=== PATIENT | female | born 1930 | race Caucasian/White ===

== ENCOUNTER 2018-07-12 09:14 | Inpatient (IN) | payer MEDICARE ==
--- NOTE | 2018-07-12 10:59 | RAD ---
ONE VIEW PELVIS: HISTORY: Fall. Pain. FINDINGS: Sacral alae are preserved. Sacroiliac joints are patent and symmetric. There is an acute fracture i nvolving the right superior pubic ramus. There is a presumed radiographically occult right inferior pubic ramus fracture. Contour of both femoral heads is maintained. Mild degenerative change of both hip joint spaces. IMPRESSION: Right rami fracture. POS: [facility]
--- NOTE | 2018-07-12 11:01 | RAD ---
RIGHT FEMUR 2 VIEWS: HISTORY: Fall. Pain. FINDINGS: No fracture, cortical irregularity, or periosteal reaction with regards to the right femur. Right superior pubic ramus fracture is noted. Inferior ramus fracture is not appreciated and is pres umed to be radiographically occult. IMPRESSION: Right superior pubic ramus fracture. POS: [facility]
--- NOTE | 2018-07-12 12:15 | RAD ---
PORTABLE CHEST: DATE: 07/12/2018. PROVIDED CLINICAL HISTORY: Cough. FINDINGS: Comparison 02/18/2017. A portion of the right hemithorax is not visualized on this image due to techni que. Cardiac silhouette remains enlarged. Left subclavian cardiac pacing device is again noted. Le ft basilar pleural-parenchymal opacities may reflect pleural fluid and adjacent atelectasis or pneumo marcy. Conspicuous appearance to the right hilum is nonspecific. No evidence for pneumothorax. IMPRESSION: 1. Left basilar pleural-parenchymal opacity may reflect pleural fluid and adjacent atelectasis or pn eumonia. 2. Mass-like appearance to the right hilum. Correlation with chest CT is recommended. CODE T
[2018-07-12 12:55] LABS: Bilirubin Small (Negative); Blood, Urine Negative (Negative); Clarity CLEAR (Clear); Glucose, Urine (Dipstick) Negative (Negative); Leukocyte Trace (Negative); Nitrite Negative (Negative); Protein, Urine (Dipstick) Negative (Neg-Trace); Specific Gravity, Urine 1.021 (1.002-1.036); Urobilinogen 0.2 mg/dL (0.2-1.0); pH, Urine 5.5 (5.0-9.0)
[2018-07-12 12:57] LABS: Bacteria/HPF None Seen HPF (None Seen); Hyaline Casts/LPF 0-3 HYALINE CAST LPF (0-3 Hyaline); Pathc Cast-AUWi Flag 0.14 (0-2.49); RBC/HPF 0-3 HPF (0-3); Squamous Epithelial None Seen HPF (0-3); WBC/HPF None Seen HPF (0-3)
[2018-07-12 13:04] LABS: #Lymphocytes 0.3 thou/uL (1.20-3.40); #Monocytes 0.5 thou/uL (0.11-0.59); #Neutrophils 6.9 thou/uL (1.40-6.50); %Basophils 0.1 % (0.0-1.0); %Eosinophils 0.2 % (0.0-10.0); %Monocytes 6.6 % (0.0-10.0); %Neutrophils 89.2 % (42.0-75.0); Hemoglobin 10.7 g/dL (12.0-16.0); Mean Corpuscular Hemoglobin 32.8 pg (27.0-31.0); Mean Corpuscular Volume 96.4 fL (78.0-98.0); Mean Platelet Volume 7.6 fL (7.4-10.4); Platelet Count 158 thou/uL (130-400); RBC Distribution Width 13.4 % (11.5-14.5); Red Blood Cell (RBC) Count 3.27 mill/uL (4.20-5.40); White Blood Cell (WBC) Count 7.7 thou/uL (4.8-10.8)
[2018-07-12 13:17] LABS: ALT (SGPT) 41 U/L (8-55); AST (SGOT) 15 U/L (5-34); Albumin 3.4 g/dL (3.4-4.8); Alkaline Phosphatase 94 U/L (40-150); Anion Gap 14 mmol/L (10-20); BUN (Urea Nitrogen) 31 mg/dL (9.8-20.1); Calc. Creatinine Clearance 0 mL/min (70-130); Calcium 9.3 mg/dL (7.8-10.44); Carbon Dioxide 27 mmol/L (23-31); Chloride 97 mmol/L (98-107); Estimated GFR-MDRD 66; Globulin 3.7 g/dL (2.4-3.5); Glucose 125 mg/dL (83-110); Potassium 3.7 mmol/L (3.5-5.1); Protein, Total 7.1 g/dL (6.0-8.3); Sodium 134 mmol/L (136-145)
[2018-07-12] MEDS ORDERED: Morphine 4 MG/ML VIAL ONE (14:05)
[2018-07-12] MEDS ORDERED: Morphine 2 MG/ML SYRINGE SLOW IVP PRN (15:56)
[2018-07-12] MEDS ORDERED: Morphine 4 MG/ML VIAL SLOW IVP PRN (15:58)
[2018-07-12] MEDS ORDERED: Ondansetron PF 4 MG/2 ML Vial IVP PRN ×2 (16:04→18:52)
[2018-07-12] MEDS ORDERED: Fentanyl 100 MCG/2 ML VIAL SLOW IVP PRN (18:51)
[2018-07-12] MEDS: Sodium Chloride 0.45% 1,000 ML IV SCH (19:00)
[2018-07-12] MEDS: Brinzolamide 1% Ophth Soln 10 ml Bottle L EYE SCH (19:49)
[2018-07-12] MEDS: Atorvastatin Calcium 40 MG TAB PO SCH (19:49)
[2018-07-12] MEDS: Ivabradine 5 MG TAB PO SCH (19:49)
--- NOTE | 2018-07-12 22:46 | HP ---
HISTORY OF PRESENT ILLNESS: The patient was brought to the emergency room because of a previous fall by her family. The family did note that she had been having a great deal of pain, unable to move or eat as she normally had. She states that she actually was walking around the house and getting her clothes on the day prior to coming to the emergency room. She sat back thinking she was going to sit on the bed, but missed the bed and went to the floor and told family that it was just sore muscles ever since that time, but they noted her degree of pain was more than what Advedilson could control and it was affecting her appetite, so they brought her to the ER for further evaluation. She describes the pain as an 8/10, it is deep in the right buttock area and is not relieved by anything. X-rays in the emergency room actually revealed a superior ramus/ramus fracture. As previously mentioned, the x-rays revealed a superior right pubic ramus fracture. The hip and femur itself showed no other fractures. It was also noted that she has some mild hypoxia while being observed and that her COPD was exacerbated and she was unable to perform her usual activities of daily living such as going to the restroom and dressing herself. 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 PAST SURGICAL HISTORY: Includes heart catheterization, back surgery, hysterectomy, and pacemaker placement AICD most recently updated 01/09/2017. PSYCHIATRIC HISTORY: As mentioned previously, mild anxiety and depression. SOCIAL HISTORY: Denies alcohol use or smoking, but did live in the home of a chronic smoker and thereby given her secondhand COPD. She never used illicit drugs. ALLERGIES: CODEINE SULFATE. MEDICATIONS: On admission include: 1. Combigan one drop in the left eye b.i.d. 2. Azopt 1% ophthalmic drops one drop b.i.d. in the left eye. 3. Atorvastatin 40 mg nightly. 4. Coreg 25 mg b.i.d. 5. Levothyroxine 125 p.o. daily. 6. Lumigan 0.3% ophthalmic drops one drop left eye daily. 7. Pradaxa 75 mg daily. 8. Pantoprazole 40 mg daily. 9. Entresto 49-51 mg one p.o. b.i.d. 10. Macrobid 1 p.o. daily. 11. Recently, she has been put on sertraline 25 mg daily. REVIEW OF SYSTEMS: GENERAL: She denies fever, chills, or general malaise. She has had just diminished appetite due to pain in her right buttock area. HEENT: No sores in her nose or pharynx. No eye drainage or discharge. CHEST: Has dyspnea with minimal exertion, but no cough or fever. CARDIOVASCULAR: Denies chest pain or palpitations at this time. GI: Denies nausea, vomiting, or diarrhea. : Denies painful urination or blood in urine or stool. MUSCULOSKELETAL: Reports severe pain of the right upper leg from her buttock down, but otherwise there is 1+ clubbing and edema on the right, but none on the left or the upper extremities. Range of motion is adequate in upper extremities and the left lower extremity. SKIN: Without acute rashes or lesions. NEUROLOGIC: Denies trouble with mentation, areas of anesthesia or paresthesia. HEME AND LYMPHATIC: Complains of edema in the right lower leg, but this has been longstanding. PHYSICAL EXAMINATION: VITAL SIGNS: Blood pressure is 105/70, pulse 117, respirations 20, temperature 97.6, pain is a 10/10, O2 saturation 96% on room air, went down to 88% while sitting kyphotic leaning forward position. HEENT: Normocephalic, atraumatic. Pupils with unequal reactivity to light especially on the right where she is blind. Arcus senilis noted. TMs, nares, and pharynx are clear. NECK: Stiff, but no pain with range of motion. No mass or bruit. CHEST: Generally diminished breath sounds, but no active wheezing or rhonchi. BACK: Shows significant kyphosis, but nontender and diminished range of motion. BREASTS: Deferred. HEART: Regular rate and rhythm with audible 3/6 murmur. ABDOMEN: Nontender. No appreciable organomegaly. AND BREASTS: Deferred. EXTREMITIES: With swelling and edema to the right lower extremity, 1+. Pain with deep palpation in the sciatic notch area. Other limbs are without pain and normal range of motion. SKIN: No acute rashes or lesions. Generally, the skin is thin and bruised easily. NEUROLOGIC: Cranial nerves are intact. Gait and cerebral function not tested at this time. Sensory exam is generally intact. LABORATORY DATA: Thus far, WBC is 7.7, hemoglobin 10.7, hematocrit 31.5, platelets of 158. Sodium 134, potassium 3.7, chloride 97, BUN 31, creatinine 0.82 with a GFR of 66. Glucose is 125. UA shows trace ketones, small bilirubin, and leukocyte esterase. IMAGING STUDIES: X-rays of the right femur are unremarkable. X-rays of the right pelvis show the superior pubic ramus fracture. ASSESSMENT: 1. Superior pubic ramus fracture on the right. 2. Dehydration. 3. Debility and deconditioning. 4. Severe congestive heart failure. 5. Chronic obstructive pulmonary disease with mild hypoxia. 6. Inability to perform usual activity of daily living. PLAN: Will be hospitalization. Pain management. Serial re-evaluation. Once ready for discharge, then transfer to a rehab facility and hopefully return home from there. Job ID: [id number]
[2018-07-13] MEDS: Fentanyl 100 MCG/2 ML VIAL SLOW IVP PRN ×3 (00:34→08:14)
[2018-07-13] MEDS: Sodium Chloride 0.45% 1,000 ML IV SCH ×3 (00:39→17:20)
[2018-07-13] MEDS ORDERED: Furosemide 20 MG/2 ML VIAL SLOW IVP SCH (06:00)
[2018-07-13] MEDS ORDERED: Levothyroxine Sodium 125 MCG TAB PO SCH (06:00)
[2018-07-13 08:35] LABS: #Lymphocytes 0.4 thou/uL (1.20-3.40); #Monocytes 0.5 thou/uL (0.11-0.59); #Neutrophils 6.8 thou/uL (1.40-6.50); %Eosinophils 0.2 % (0.0-10.0); %Lymphocytes 4.6 % (21.0-51.0); %Monocytes 6.6 % (0.0-10.0); %Neutrophils 88.6 % (42.0-75.0); Hemoglobin 9.4 g/dL (12.0-16.0); Mean Corpuscular HGB CONC 34.2 g/dL (32.0-36.0); Mean Corpuscular Hemoglobin 33.2 pg (27.0-31.0); Mean Corpuscular Volume 96.9 fL (78.0-98.0); Mean Platelet Volume 7.4 fL (7.4-10.4); Platelet Count 129 thou/uL (130-400); RBC Distribution Width 13.3 % (11.5-14.5); Red Blood Cell (RBC) Count 2.83 mill/uL (4.20-5.40); White Blood Cell (WBC) Count 7.7 thou/uL (4.8-10.8)
[2018-07-13] MEDS: Nitrofurantoin Monohyd/M-Cryst 100 MG CAP PO SCH (08:47)
[2018-07-13] MEDS: Ivabradine 5 MG TAB PO SCH ×2 (08:47→21:00)
[2018-07-13] MEDS: Pantoprazole 40 MG VIAL IVP SCH (08:47)
[2018-07-13] MEDS: Sacubitril 49 MG/Valsartan 51 MG TABLET PO SCH (08:48)
[2018-07-13] MEDS: Brinzolamide 1% Ophth Soln 10 ml Bottle L EYE SCH ×3 (08:48→21:00)
[2018-07-13 08:50] LABS: Hemoglobin A1c 5.6 % (4.0-6.0)
[2018-07-13] MEDS ORDERED: Prevnar 13-Val Conj/PF 0.5 ML SYRINGE IM ONE (09:00)
--- NOTE | 2018-07-13 09:02 | CT ---
CT THORAX WITH IV CONTRAST: DATE: 07/13/2018. HISTORY: Shortness of breath. Abnormal chest x-ray. FINDINGS: There are moderately large bilateral pleural effusions, larger in size on the right. There are inter stitial and alveolar densities within the right upper lobe likely attributable to pneumonia. A few s cattered ground-glass densities are seen on the left, also likely related to infectious process. The re is a questioned hilar mass on the recent chest x-ray, but this is likely related to the infiltrate within the right lung which overlies the right hilar region. A triple-lead left subclavian AICD device is noted in place. The heart is enlarged. Vascular calcifications are seen in the thoracic aorta. There is no evidence of an aortic dissection . A few nonenlarged mediastinal lymph nodes are present. There is a low-density lesion seen in the medial aspect of the right hepatic lobe. However, this is stable in size and appearance compared to a prior CTA of the chest on 07/21/2010 suggesting a benign fi nding and likely represents a small hepatic cyst. IMPRESSION: 1. Moderately large bilateral pleural effusions, greater on the right. 2. Parenchymal consolidation in the right upper lobe, and this parenchymal consolidation was not vis ualized in the right upper lobe on the recent chest x-ray on 07/12/2018; however, the questioned mass -like density in the right hilar region may have been related to infiltrate on the chest radiograph. There are also scattered ground-glass and alveolar opacities within he left upper lobe. Findings ar e likely related to pneumonia bilaterally, and atypical pneumonia is a possibility. 3. Gaseous distention of the esophagus. 4. Cardiomegaly. 5. Hypodense right hepatic lobe lesion stable when dating back to a study of 2010 suggesting benign finding. 6. Mild height loss of T8 and T9 vertebral bodies suggesting mild wedge-shaped compression fractures , stable since CTA of chest on 02/15/2017. There is also partial visualization of compression fracture involving the central aspect superior end plate of the L2 vertebral body which was seen on CT lumbar spine in 2014. POS: [facility]
[2018-07-13 09:04] LABS: Anion Gap 11 mmol/L (10-20); BUN (Urea Nitrogen) 29 mg/dL (9.8-20.1); Calc. Creatinine Clearance 48 mL/min (70-130); Calcium 8.9 mg/dL (7.8-10.44); Carbon Dioxide 27 mmol/L (23-31); Chloride 96 mmol/L (98-107); Estimated GFR-MDRD 70; Glucose 130 mg/dL (83-110); Potassium 3.4 mmol/L (3.5-5.1); Sodium 131 mmol/L (136-145)
--- NOTE | 2018-07-13 09:56 | CON ---
DATE OF CONSULTATION: 07/12/2018 ORTHOPEDIC CONSULTATION: BRIEF HISTORY OF PRESENT ILLNESS: The patient is a pleasant 88-year-old lady who was examined in her hospital bed on [place] [facility] with her daughter at bedside. The patient reports that she was trying to return to her bed, went to sit down, but missed the bed, fell on the floor and at that point, sustained some anterior pelvis discomfort. She was seen and evaluated at the hospital at [facility] where x-rays of the pelvis and femur remarkable for a right superior ramus fracture and what appears to be a completely nondisplaced insufficiency type fracture of the inferior ramus on the same side. The patient admitted to the hospital because of some mild hypoxia as well as exacerbation of her COPD, and Orthopedic consultation requested. PAST MEDICAL HISTORY: Remarkable for congestive heart failure, glaucoma, atrial fibrillation, hypothyroidism, hypertension, and mild depression. PAST SURGICAL HISTORY: Includes cardiac catheterization, spine surgery, hysterectomy, and pacemaker placement in December of 2016. MEDICATIONS: Include: 1. Eye drop x2. 2. Atorvastatin. 3. Coreg. 4. Levothyroxine. 5. Pradaxa. 6. Pantoprazole. 7. Entresto. 8. Macrobid. 9. Sertraline. ALLERGIES: TO CODEINE AND SULFA. FAMILY HISTORY: Noncontributory for fracture. SOCIAL HISTORY: The patient does have exposure to secondhand smoke. Denies illicit drug use or alcohol consumption. REVIEW OF SYSTEMS: Denies recent fevers, chills, or sweats. She does report some mild shortness of breath, although denies chest pain. She denies numbness or tingling in lower extremities. PHYSICAL EXAMINATION: VITAL SIGNS: Temperature 97.5, respiratory rate of 20, heart rate of 117, and blood pressure of 105/70. GENERAL: Again, the patient was examined in her hospital bed at [facility]. HEENT: Atraumatic, normocephalic. HEART: Shows a regular rate and rhythm with a 3/6 systolic ejection murmur. CHEST: Clear, but with diminished breath sounds. CHEST WALL: Nontender. PELVIS: Remarkable for some groin pain with compression of the iliac wings, but no gross instability. She denies sacral pain. EXTREMITIES: Remarkable for bilateral lower extremities that are atraumatic. There is no pain at the hip joint proper, knee, ankle, or foot. Bilateral lower extremities have normal and protective neurovascular exam. LABORATORY DATA: She was found to have a white count of 7.7, hematocrit of 31.5, and 158,000 platelets. DIAGNOSTIC DATA: X-rays; AP, pelvis, and femur remarkable for findings as described in the History of Present Illness. ASSESSMENT: An 88-year-old lady with superior and probable inferior pubic rami fracture, right side, but no evidence of sacral disk fracture in addition to her chronic illnesses of congestive heart failure and chronic obstructive pulmonary disease. PLAN: Today, I discussed with the patient and her daughter that this pelvis injury is stable. She may be weightbearing as tolerated bilaterally. We will have Physical Therapy work with her and get her up with a walker for stability until such time that she can return to her cane. Today, I briefly discussed with the patient that she may wish to consider using a walker on a more regular basis to avoid falls. They appear comfortable with our discussion and plan. Job ID: [id number]
[2018-07-13 13:09] LABS: Bilirubin Small (Negative); Blood, Urine Negative (Negative); Clarity TURBID (Clear); Glucose, Urine (Dipstick) Negative (Negative); Leukocyte Small (Negative); Nitrite Negative (Negative); Protein, Urine (Dipstick) Trace mg/dL (Neg-Trace); Specific Gravity, Urine 1.021 (1.002-1.036); Urobilinogen 0.2 mg/dL (0.2-1.0); pH, Urine 5.5 (5.0-9.0)
[2018-07-13 13:12] LABS: Bacteria/HPF None Seen HPF (None Seen); RBC/HPF 0-3 HPF (0-3); WBC/HPF 0-3 HPF (0-3)
[2018-07-13 13:28] LABS: Hyaline Casts/LPF NONE SEEN LPF (0-3 Hyaline)
[2018-07-13] MEDS: Furosemide 40 MG TAB PO SCH (14:49)
--- NOTE | 2018-07-13 18:15 | CON ---
DATE OF CONSULTATION: 07/13/2018 REASON FOR CONSULTATION: Heart failure. PRIMARY ALTERATION TAILOR: Dr. Alhaji Do. HISTORY OF PRESENT ILLNESS: Ms. Lopez is a very pleasant 88-year-old white female, who comes to the hospital after a fall. She was walking around the house and sat back thinking she was going to sit on the bed and missed and actually fell straight down and hit her buttocks on the floor. She felt immediate pain around her hip. She was brought into the hospital for the pain, where she was found to have a superior ramus fracture. Dr. Olvera was consulted and plan is to treat her medically for this. No surgery is planned. Cardiology being consulted as in the last few days prior to her fall and her arrival to the hospital, she had been hypoxic and complaining of increased shortness of breath. She has a history of nonischemic cardiomyopathy, followed by Dr. Do. She has an AICD in place as well. PAST MEDICAL HISTORY: 1. Right eye blindness. 2. Nonischemic cardiomyopathy. 3. Carcinoma of the right eye. 4. History of pulmonary emboli. 5. Hypertension. 6. Sick sinus syndrome. 7. Glaucoma. 8. History of pulmonary embolus. 9. Hypothyroidism. 10. General anxiety disorder. 11. Mild depression. PAST SURGICAL HISTORY: 1. AICD placement in December of 2016. 2. Heart catheterization in 2009. 3. Back surgery. 4. Hysterectomy. SOCIAL HISTORY: No alcohol, tobacco, or drugs. Lives at home. Former secondhand smoker. No drugs. ALLERGIES: CODEINE. OUTPATIENT MEDICATIONS: Include: 1. Combigan. 2. Azopt eyedrops. 3. Atorvastatin 40 mg a day. 4. Coreg 25 mg b.i.d. 5. Levothyroxine 125 mcg a day. 6. Lumigan ophthalmic eyedrops. 7. Pradaxa 75 mg a day. 8. Pantoprazole 40 mg a day. 9. Entresto 49/51 b.i.d. 10. Macrobid. 11. Sertraline 25 mg a day. REVIEW OF SYSTEMS: A 12-point review of systems was done and was found to be negative unless stated in the history of present illness. FAMILY HISTORY: No early coronary artery disease. PHYSICAL EXAMINATION: VITAL SIGNS: Temperature 98.0, pulse 105, respiratory rate 19, saturating 90% on 2 L nasal cannula, blood pressure 120/78. GENERAL: She is sleepy from the pain medications, in no distress. HEENT: Normocephalic and atraumatic. NECK: Supple. LUNGS: Have mild crackles at the bases, with reduced breath sounds. CARDIOVASCULAR: S1 and S2. No S3 or S4. ABDOMEN: Soft. EXTREMITIES: 2+ edema. SKIN: Warm and dry. LABORATORY DATA: Laboratory work was reviewed. CBC was reviewed. Chemistry was reviewed. UA was reviewed. BNP was 2516. TSH was 8.9. CT of the chest showed moderately to large bilateral pleural effusions, worse on the right. There is a right upper lobe consolidation, cardiomegaly, and loss of height from a wedge-shaped compression fracture, which is stable from 2017. EKG was reviewed. Her most recent echocardiogram in February of 2017, EF at 30% to 35%, grade 1 diastolic dysfunction. ASSESSMENT: 1. Acute on chronic systolic and diastolic heart failure. 2. Recent fall. 3. Superior right pubic ramus fracture. Medical therapy for this. 4. Chronic obstructive pulmonary disease with exacerbation. 5. Right upper lobe pneumonia. PLAN: She is volume up right now. We will agree with IV Lasix for diuresis. Thank you for letting me to participate in the care of your patient. Dr. Do, her primary hull grinder will follow up in the morning. Job ID: [id number]
[2018-07-13] MEDS: Atorvastatin Calcium 40 MG TAB PO SCH (21:00)
[2018-07-13] MEDS: Potassium Chloride 20 MEQ TAB PO SCH (21:00)
[2018-07-14] MEDS: Levothyroxine 150 MCG TAB PO SCH (06:25)
[2018-07-14 07:18] LABS: Hemoglobin 7.9 g/dL (12.0-16.0); Mean Corpuscular HGB CONC 33.6 g/dL (32.0-36.0); Mean Corpuscular Hemoglobin 32.6 pg (27.0-31.0); Mean Platelet Volume 7.4 fL (7.4-10.4); Platelet Count 115 thou/uL (130-400); RBC Distribution Width 13.1 % (11.5-14.5); Red Blood Cell (RBC) Count 2.43 mill/uL (4.20-5.40); White Blood Cell (WBC) Count 5.4 thou/uL (4.8-10.8)
[2018-07-14] MEDS: Pantoprazole 40 MG VIAL IVP SCH (08:54)
[2018-07-14] MEDS: Sacubitril 49 MG/Valsartan 51 MG TABLET PO SCH (08:55)
[2018-07-14] MEDS: Brinzolamide 1% Ophth Soln 10 ml Bottle L EYE SCH ×3 (08:56→21:20)
[2018-07-14] MEDS: Potassium Chloride 20 MEQ TAB PO SCH ×2 (08:56→21:23)
[2018-07-14] MEDS: Nitrofurantoin Monohyd/M-Cryst 100 MG CAP PO SCH (08:56)
[2018-07-14] MEDS: Ivabradine 5 MG TAB PO SCH ×2 (08:56→21:33)
[2018-07-14] MEDS: Furosemide 40 MG TAB PO SCH ×2 (08:56→13:53)
[2018-07-14 09:26] LABS: Band 26 % (5-11); Eosinophils 3 % (0-10); Lymphocytes 7 % (21-51); MDiff Complete? YES; Monocytes 3 % (0-10); Neutrophil 59 % (42-75); Platelet Morphology Comment Appears Decreased; Polychromasia SLIGHT = 2-3 cells (100X) (0-2/hpf); Reactive Lymphocytes 2 % (0-10)
--- NOTE | 2018-07-14 13:54 | RAD ---
PORTABLE CHEST 1 VIEW: Date: 07/14/18 Time: 1258 hours HISTORY: Cough. COPD. FINDINGS: Comparison made with exam of 07/12/18. Interval development of new patchy areas of consolidation are seen in both lungs. Bilateral pleural e ffusions are present. There is atelectatic change at the left lung base. There is a left-sided AICD. IMPRESSION: Bilateral pneumonia. POS: [facility]
--- NOTE | 2018-07-14 17:21 | PDOC.CTH ---
Cardiology Progress Note - Subjective No new issues. Breathing at baseline. LE edema improved. - Objective Vital Signs Temp Pulse Resp BP Pulse Ox 07/14/18 08:00 94 L 07/14/18 07:44 97.5 F L 77 20 140/88 93 L Admit Weight 133 lb Weight 133 lb 07/13/18 07/14/18 07/15/18 06:59 06:59 06:59 Intake Total 1365 360 240 Output Total 500 Balance 865 360 240 - Physical Examination General/Neuro: NAD Neck: no JVD present Lungs: unlabored respirations Heart: RRR Abdomen: NT/ND Extremities: + edema B (1+) - Labs Result Diagrams: 07/14/18 06:18 07/13/18 08:20 - Assessment/Plan 1. Acute on chronic systolic heart failure. 2. Superior right pubic ramus fracture 3. RLL Pneumonia 4. COPD 5. Anemia. PLAN: - Would switch back to home dose of PO lasix.
[2018-07-14] MEDS: Atorvastatin Calcium 40 MG TAB PO SCH (21:33)
[2018-07-15] MEDS: Levothyroxine 150 MCG TAB PO SCH (06:30)
[2018-07-15 07:13] LABS: #Lymphocytes 0.3 thou/uL (1.20-3.40); #Monocytes 0.4 thou/uL (0.11-0.59); #Neutrophils 4.5 thou/uL (1.40-6.50); %Eosinophils 0.1 % (0.0-10.0); %Lymphocytes 5.9 % (21.0-51.0); %Monocytes 7.6 % (0.0-10.0); %Neutrophils 86.3 % (42.0-75.0); Hemoglobin 8.5 g/dL (12.0-16.0); Mean Corpuscular HGB CONC 33.7 g/dL (32.0-36.0); Mean Corpuscular Hemoglobin 32.5 pg (27.0-31.0); Mean Corpuscular Volume 96.5 fL (78.0-98.0); Mean Platelet Volume 7.9 fL (7.4-10.4); Platelet Count 152 thou/uL (130-400); RBC Distribution Width 13.1 % (11.5-14.5); Red Blood Cell (RBC) Count 2.61 mill/uL (4.20-5.40); White Blood Cell (WBC) Count 5.2 thou/uL (4.8-10.8)
[2018-07-15 07:27] LABS: Anion Gap 14 mmol/L (10-20); BUN (Urea Nitrogen) 38 mg/dL (9.8-20.1); Calc. Creatinine Clearance 50 mL/min (70-130); Calcium 8.7 mg/dL (7.8-10.44); Carbon Dioxide 26 mmol/L (23-31); Chloride 98 mmol/L (98-107); Estimated GFR-MDRD 68; Glucose 104 mg/dL (83-110); Potassium 4.1 mmol/L (3.5-5.1); Sodium 134 mmol/L (136-145)
[2018-07-15] MEDS: Pantoprazole 40 MG VIAL IVP SCH (08:18)
[2018-07-15] MEDS: Sacubitril 49 MG/Valsartan 51 MG TABLET PO SCH (08:19)
[2018-07-15] MEDS: Nitrofurantoin Monohyd/M-Cryst 100 MG CAP PO SCH (08:20)
[2018-07-15] MEDS: Potassium Chloride 20 MEQ TAB PO SCH ×2 (08:20→21:12)
[2018-07-15] MEDS: Brinzolamide 1% Ophth Soln 10 ml Bottle L EYE SCH ×3 (08:21→21:12)
[2018-07-15] MEDS: Furosemide 40 MG TAB PO SCH (08:21)
[2018-07-15] MEDS: Ivabradine 5 MG TAB PO SCH ×2 (08:21→21:11)
[2018-07-15] MEDS ORDERED: VANCOMYCIN IVPB PRN (09:27)
[2018-07-15] MEDS ORDERED: Azithromycin 500 MG in Sodium Chloride 0.9% 250 ML 250 ML IVPB SCH (10:00)
[2018-07-15] MEDS: Vancomycin HCl 1 GM in Premix Bag 1 BAG IVPB SCH (10:15)
--- NOTE | 2018-07-15 17:52 | PDOC.CTH ---
Cardiology Progress Note - Subjective She has increased edema and remains on home O2. - Objective Vital Signs Temp Pulse Resp BP Pulse Ox 07/15/18 13:48 70 16 07/15/18 10:34 70 14 07/15/18 08:00 96 07/15/18 07:25 97.6 F 72 22 H 152/92 H 98 Admit Weight 133 lb Weight 141 lb 8 oz 07/14/18 07/15/18 07/16/18 06:59 06:59 06:59 Intake Total 360 480 Output Total 375 500 Balance 360 105 -500 - Physical Examination General/Neuro: NAD Neck: no JVD present Lungs: CTA, unlabored respirations Heart: RRR Abdomen: NT/ND Extremities: + edema B (2+) - Labs Result Diagrams: 07/15/18 06:26 07/15/18 06:26 - Assessment/Plan 1. Acute on chronic systolic heart failure. 2. Superior right pubic ramus fracture 3. RLL Pneumonia 4. COPD 5. Anemia. PLAN: - Will give one dose IV lasix. - Continue other meds.
[2018-07-15] MEDS: Piperacillin/Tazobactam 4.5 GM in Sodium Chloride 0.9% 100 ML IVPB SCH ×2 (18:03→23:47)
[2018-07-15] MEDS ORDERED: Furosemide 40 MG/4 ML VIAL SLOW IVP SCH (19:45)
[2018-07-15] MEDS: Atorvastatin Calcium 40 MG TAB PO SCH (21:11)
[2018-07-16] MEDS: Levothyroxine 150 MCG TAB PO SCH (05:57)
[2018-07-16] MEDS: Piperacillin/Tazobactam 4.5 GM in Sodium Chloride 0.9% 100 ML IVPB SCH ×3 (05:57→16:43)
[2018-07-16 06:58] LABS: #Lymphocytes 0.5 thou/uL (1.20-3.40); #Monocytes 0.5 thou/uL (0.11-0.59); #Neutrophils 6.1 thou/uL (1.40-6.50); %Eosinophils 0.4 % (0.0-10.0); %Lymphocytes 6.5 % (21.0-51.0); %Monocytes 7.5 % (0.0-10.0); %Neutrophils 85.7 % (42.0-75.0); Hemoglobin 9.4 g/dL (12.0-16.0); Mean Corpuscular HGB CONC 33.2 g/dL (32.0-36.0); Mean Corpuscular Hemoglobin 32.3 pg (27.0-31.0); Mean Corpuscular Volume 97.2 fL (78.0-98.0); Mean Platelet Volume 7.4 fL (7.4-10.4); Platelet Count 164 thou/uL (130-400); RBC Distribution Width 13.3 % (11.5-14.5); Red Blood Cell (RBC) Count 2.93 mill/uL (4.20-5.40); White Blood Cell (WBC) Count 7.1 thou/uL (4.8-10.8)
[2018-07-16 07:16] LABS: Anion Gap 15 mmol/L (10-20); BUN (Urea Nitrogen) 36 mg/dL (9.8-20.1); Calc. Creatinine Clearance 50 mL/min (70-130); Calcium 8.6 mg/dL (7.8-10.44); Carbon Dioxide 26 mmol/L (23-31); Chloride 99 mmol/L (98-107); Estimated GFR-MDRD 68; Glucose 119 mg/dL (83-110); Potassium 3.5 mmol/L (3.5-5.1); Sodium 136 mmol/L (136-145)
[2018-07-16] MEDS ORDERED: Furosemide 40 MG/4 ML VIAL SLOW IVP SCH ×2 (07:30→14:30)
[2018-07-16] MEDS: Ivabradine 5 MG TAB PO SCH ×2 (07:51→20:38)
[2018-07-16] MEDS: Sacubitril 49 MG/Valsartan 51 MG TABLET PO SCH (07:52)
[2018-07-16] MEDS: Pantoprazole 40 MG VIAL IVP SCH (07:53)
[2018-07-16] MEDS: Brinzolamide 1% Ophth Soln 10 ml Bottle L EYE SCH ×3 (07:56→20:39)
[2018-07-16] MEDS: Potassium Chloride 20 MEQ TAB PO SCH ×2 (07:58→20:39)
[2018-07-16] MEDS: Nitrofurantoin Monohyd/M-Cryst 100 MG CAP PO SCH (07:58)
[2018-07-16] MEDS: Vancomycin HCl 1 GM in Premix Bag 1 BAG IVPB SCH (07:59)
--- NOTE | 2018-07-16 08:05 | RAD ---
CHEST ONE VIEW: HISTORY: Pneumonia. Followup. COMPARISON: 07/14/2018 FINDINGS: The cardiac silhouette is magnified and remains obscured by patchy air space infiltrate involving eac h lobe. Bilateral pleural fluid is similar in appearance to the prior exam. The mediastinum remains midline with a multilead left subclavian cardiac electronic device and aortic calcification. No josselin dence of pneumothorax. IMPRESSION: Dense multifocal pneumonia, pleural fluid, and other findings are stable. POS: [facility]
[2018-07-16] MEDS ORDERED: Furosemide 40 MG TAB PO SCH (09:00)
--- NOTE | 2018-07-16 14:01 | PDOC.CTH ---
Cardiology Progress Note - Subjective She is much more awake today. Her pain is well controlled. - Objective Vital Signs Temp Pulse Resp BP Pulse Ox 07/16/18 10:19 72 16 96 07/16/18 07:50 97.5 F L 75 16 151/93 H 98 07/16/18 06:15 73 16 98 07/16/18 04:00 97.5 F L 73 16 154/96 H 98 Admit Weight 133 lb Weight 141 lb 0.004 oz 07/15/18 07/16/18 07/17/18 06:59 06:59 06:59 Intake Total 480 420 Output Total 375 2650 Balance 105 -2230 - Physical Examination General/Neuro: alert & oriented x3, NAD Neck: no JVD present Lungs: unlabored respirations Heart: RRR Abdomen: NT/ND Extremities: + edema B (1+ improved.) - Labs Result Diagrams: 07/16/18 06:36 07/16/18 06:36 - Assessment/Plan 1. Acute on chronic systolic heart failure. 2. Superior right pubic ramus fracture 3. RLL Pneumonia 4. COPD 5. Anemia. PLAN: - Will give one more dose IV lasix today and pone tomorrow morning. Then switch back to home PO dose. - Continue other meds. - IV abx per primary team.
[2018-07-16] MEDS: Atorvastatin Calcium 40 MG TAB PO SCH (20:38)
[2018-07-17] MEDS: Piperacillin/Tazobactam 4.5 GM in Sodium Chloride 0.9% 100 ML IVPB SCH (00:14)
[2018-07-17] MEDS ORDERED: diphenhydrAMINE 25 MG CAP PO PRN (04:20)
[2018-07-17] MEDS: Levothyroxine 150 MCG TAB PO SCH (06:12)
[2018-07-17 06:35] LABS: Anion Gap 12 mmol/L (10-20); BUN (Urea Nitrogen) 26 mg/dL (9.8-20.1); Calc. Creatinine Clearance 49 mL/min (70-130); Calcium 8.2 mg/dL (7.8-10.44); Carbon Dioxide 36 mmol/L (23-31); Chloride 96 mmol/L (98-107); Estimated GFR-MDRD 67; Glucose 121 mg/dL (83-110); Sodium 141 mmol/L (136-145)
[2018-07-17 06:49] LABS: #Lymphocytes 0.4 thou/uL (1.20-3.40); #Monocytes 0.6 thou/uL (0.11-0.59); #Neutrophils 5.8 thou/uL (1.40-6.50); %Basophils 0.2 % (0.0-1.0); %Eosinophils 0.5 % (0.0-10.0); %Lymphocytes 5.6 % (21.0-51.0); %Monocytes 8.8 % (0.0-10.0); %Neutrophils 84.9 % (42.0-75.0); Hemoglobin 10.2 g/dL (12.0-16.0); Mean Corpuscular Hemoglobin 32.1 pg (27.0-31.0); Mean Corpuscular Volume 97.4 fL (78.0-98.0); Mean Platelet Volume 7.4 fL (7.4-10.4); Platelet Count 192 thou/uL (130-400); RBC Distribution Width 13.3 % (11.5-14.5); Red Blood Cell (RBC) Count 3.17 mill/uL (4.20-5.40); White Blood Cell (WBC) Count 6.8 thou/uL (4.8-10.8)
[2018-07-17] MEDS: Ivabradine 5 MG TAB PO SCH ×2 (08:38→20:55)
[2018-07-17] MEDS: Nitrofurantoin Monohyd/M-Cryst 100 MG CAP PO SCH (08:39)
[2018-07-17] MEDS: Potassium Chloride 20 MEQ TAB PO SCH ×2 (08:40→20:55)
[2018-07-17] MEDS: Sacubitril 49 MG/Valsartan 51 MG TABLET PO SCH (08:40)
[2018-07-17] MEDS: Brinzolamide 1% Ophth Soln 10 ml Bottle L EYE SCH ×3 (08:43→21:01)
[2018-07-17] MEDS ORDERED: Furosemide 40 MG/4 ML VIAL SLOW IVP SCH (09:00)
[2018-07-17 09:14] LABS: Vancomycin, Trough 10.2 ug/mL
[2018-07-17] MEDS: MEROPENEM 1 GM/50 ML 1 GM in Premix Bag 1 BAG IVPB SCH ×2 (09:51→17:10)
[2018-07-17] MEDS: Potassium Bicarbonate/Cit Ac 25 MEQ TAB PO SCH ×2 (09:51→17:07)
[2018-07-17] MEDS: Vancomycin HCl 1 GM in Premix Bag 1 BAG IVPB SCH (10:48)
[2018-07-17] MEDS: Atorvastatin Calcium 40 MG TAB PO SCH (20:55)
[2018-07-18] MEDS: MEROPENEM 1 GM/50 ML 1 GM in Premix Bag 1 BAG IVPB SCH ×3 (01:29→17:26)
[2018-07-18] MEDS: Levothyroxine 150 MCG TAB PO SCH (05:50)
[2018-07-18 08:03] LABS: #Eosinphils 0.1 thou/uL (0.0-0.7); #Lymphocytes 0.5 thou/uL (1.20-3.40); #Monocytes 0.5 thou/uL (0.11-0.59); #Neutrophils 6.1 thou/uL (1.40-6.50); %Eosinophils 0.7 % (0.0-10.0); %Lymphocytes 6.4 % (21.0-51.0); %Monocytes 6.9 % (0.0-10.0); Hemoglobin 9.5 g/dL (12.0-16.0); Mean Corpuscular Hemoglobin 31.9 pg (27.0-31.0); Mean Corpuscular Volume 96.5 fL (78.0-98.0); Mean Platelet Volume 7.3 fL (7.4-10.4); Platelet Count 209 thou/uL (130-400); RBC Distribution Width 13.3 % (11.5-14.5); Red Blood Cell (RBC) Count 2.97 mill/uL (4.20-5.40); White Blood Cell (WBC) Count 7.1 thou/uL (4.8-10.8)
[2018-07-18 08:20] LABS: Anion Gap 11 mmol/L (10-20); BUN (Urea Nitrogen) 26 mg/dL (9.8-20.1); Calc. Creatinine Clearance 55 mL/min (70-130); Calcium 8.1 mg/dL (7.8-10.44); Carbon Dioxide 32 mmol/L (23-31); Chloride 96 mmol/L (98-107); Estimated GFR-MDRD 78; Glucose 113 mg/dL (83-110); Sodium 136 mmol/L (136-145)
[2018-07-18] MEDS: Ivabradine 5 MG TAB PO SCH ×2 (08:22→20:48)
[2018-07-18] MEDS: Sacubitril 49 MG/Valsartan 51 MG TABLET PO SCH (08:22)
[2018-07-18] MEDS: Furosemide 40 MG TAB PO SCH (08:22)
[2018-07-18] MEDS: Potassium Chloride 20 MEQ TAB PO SCH (08:22)
[2018-07-18] MEDS: Nitrofurantoin Monohyd/M-Cryst 100 MG CAP PO SCH (08:22)
[2018-07-18] MEDS: Potassium Bicarbonate/Cit Ac 25 MEQ TAB PO SCH ×2 (08:23→16:39)
[2018-07-18] MEDS: Brinzolamide 1% Ophth Soln 10 ml Bottle L EYE SCH ×3 (08:23→20:48)
--- NOTE | 2018-07-18 11:33 | RAD ---
CHEST 2 VIEWS: Date: 07/18/18 HISTORY: Bilateral pneumonia. COMPARISON: Radiograph dated 07/16/18. FINDINGS: The multifocal pneumonia is similar. Mild improvement of edema. Moderate effusions. Multilevel thorac ic compression deformities. IMPRESSION: Mild improvement of pulmonary edema. POS: [facility]
[2018-07-18] MEDS: Fentanyl 100 MCG/2 ML VIAL SLOW IVP PRN (17:27)
--- NOTE | 2018-07-18 19:35 | PDOC.CTH ---
Cardiology Progress Note - Subjective The pt seen and examined. No overnight events. No cardiac complaints. The pt was found to have Allegic to PCN per the family. - Objective Vital Signs Temp Pulse Resp BP Pulse Ox 07/18/18 19:12 99 18 92 L 07/18/18 15:45 64 15 92 L 07/18/18 11:50 64 16 07/18/18 08:00 98.0 F 64 16 147/80 H 97 07/18/18 07:34 97 Admit Weight 133 lb Weight 136 lb 12.8 oz 07/17/18 07/18/18 07/19/18 06:59 06:59 06:59 Intake Total 450 720 Output Total 1600 1700 Balance -1600 -1250 720 - Physical Examination Lungs: other: (diminished at bases) Heart: other: (irregular) Abdomen: soft Extremities: other: (2+ pitting BLE edema) - Labs Result Diagrams: 07/18/18 07:32 07/18/18 07:32 - Assessment/Plan 1. Acute on chronic systolic heart failure with EF 10-15% in 01/2018 - improving with Lasix 40mg po qd and Colarnor. 2. Superior right pubic ramus fracture 3. RLL Pneumonia - on IV abx; she is allergic to PCN now 4. COPD - stable 5. HTN - stable 6. Hypothyroidism - managed by PCP 7. Afib - irregularly irregular with stable HR; On Pradaxa. 8. AICD placement - 9. hypokalemia - Kcl replacement by PCP 10. Chronic Anemia. MAR reviewed Review of Systems - Review of Systems Constitutional: reports: no symptoms reported EENTM: reports: no symptoms reported Respiratory: reports: no symptoms reported Cardiac (ROS): reports: no symptoms reported ABD/GI: reports: no symptoms reported
[2018-07-18] MEDS: Atorvastatin Calcium 40 MG TAB PO SCH (20:48)
[2018-07-19] MEDS: MEROPENEM 1 GM/50 ML 1 GM in Premix Bag 1 BAG IVPB SCH ×3 (02:35→17:17)
[2018-07-19] MEDS: Levothyroxine 150 MCG TAB PO SCH (06:31)
[2018-07-19 08:10] LABS: #Eosinphils 0.1 thou/uL (0.0-0.7); #Lymphocytes 0.5 thou/uL (1.20-3.40); #Monocytes 0.4 thou/uL (0.11-0.59); #Neutrophils 5.7 thou/uL (1.40-6.50); %Eosinophils 0.8 % (0.0-10.0); %Lymphocytes 7.4 % (21.0-51.0); %Monocytes 6.3 % (0.0-10.0); %Neutrophils 85.5 % (42.0-75.0); Hemoglobin 10.2 g/dL (12.0-16.0); Mean Corpuscular HGB CONC 33.5 g/dL (32.0-36.0); Mean Corpuscular Hemoglobin 32.3 pg (27.0-31.0); Mean Corpuscular Volume 96.5 fL (78.0-98.0); Mean Platelet Volume 7.1 fL (7.4-10.4); Platelet Count 236 thou/uL (130-400); RBC Distribution Width 13.9 % (11.5-14.5); Red Blood Cell (RBC) Count 3.15 mill/uL (4.20-5.40); White Blood Cell (WBC) Count 6.7 thou/uL (4.8-10.8)
[2018-07-19] MEDS: Ivabradine 5 MG TAB PO SCH ×2 (08:15→20:55)
[2018-07-19] MEDS: Furosemide 40 MG TAB PO SCH (08:15)
[2018-07-19] MEDS: Sacubitril 49 MG/Valsartan 51 MG TABLET PO SCH (08:15)
[2018-07-19] MEDS: Nitrofurantoin Monohyd/M-Cryst 100 MG CAP PO SCH (08:15)
[2018-07-19] MEDS: Potassium Bicarbonate/Cit Ac 25 MEQ TAB PO SCH ×2 (08:15→16:58)
[2018-07-19] MEDS: Brinzolamide 1% Ophth Soln 10 ml Bottle L EYE SCH ×3 (08:16→20:47)
[2018-07-19 08:30] LABS: Anion Gap 11 mmol/L (10-20); BUN (Urea Nitrogen) 28 mg/dL (9.8-20.1); Calc. Creatinine Clearance 54 mL/min (70-130); Calcium 8.5 mg/dL (7.8-10.44); Carbon Dioxide 32 mmol/L (23-31); Chloride 97 mmol/L (98-107); Estimated GFR-MDRD 79; Glucose 128 mg/dL (83-110); Sodium 137 mmol/L (136-145)
[2018-07-19] MEDS: Brimonidine Tartrate 0.2% Ophth Soln 5 ml Bottle L EYE SCH ×2 (09:10→20:46)
[2018-07-19] MEDS: Timolol 0.5% Ophth Soln 5 ml Bottle L EYE SCH ×2 (09:11→20:47)
[2018-07-19] MEDS: Fentanyl 100 MCG/2 ML VIAL SLOW IVP PRN (10:00)
[2018-07-19] MEDS: Latanoprost 0.005% Ophth Soln 2.5 ml Bottle L EYE SCH (20:45)
[2018-07-19] MEDS: Atorvastatin Calcium 40 MG TAB PO SCH (20:55)
[2018-07-20] MEDS: MEROPENEM 1 GM/50 ML 1 GM in Premix Bag 1 BAG IVPB SCH ×3 (01:51→16:34)
[2018-07-20] MEDS: Levothyroxine 150 MCG TAB PO SCH (06:01)
[2018-07-20 07:43] LABS: #Eosinphils 0.1 thou/uL (0.0-0.7); #Lymphocytes 0.4 thou/uL (1.20-3.40); #Monocytes 0.4 thou/uL (0.11-0.59); #Neutrophils 5.4 thou/uL (1.40-6.50); %Basophils 0.4 % (0.0-1.0); %Eosinophils 1.2 % (0.0-10.0); %Lymphocytes 6.8 % (21.0-51.0); %Monocytes 5.7 % (0.0-10.0); Hemoglobin 10.2 g/dL (12.0-16.0); Mean Corpuscular HGB CONC 33.2 g/dL (32.0-36.0); Mean Corpuscular Hemoglobin 31.8 pg (27.0-31.0); Mean Corpuscular Volume 95.7 fL (78.0-98.0); Mean Platelet Volume 6.8 fL (7.4-10.4); Platelet Count 239 thou/uL (130-400); RBC Distribution Width 13.9 % (11.5-14.5); Red Blood Cell (RBC) Count 3.22 mill/uL (4.20-5.40); White Blood Cell (WBC) Count 6.2 thou/uL (4.8-10.8)
[2018-07-20 08:03] LABS: Anion Gap 9 mmol/L (10-20); BUN (Urea Nitrogen) 30 mg/dL (9.8-20.1); Calc. Creatinine Clearance 54 mL/min (70-130); Calcium 8.6 mg/dL (7.8-10.44); Carbon Dioxide 33 mmol/L (23-31); Chloride 96 mmol/L (98-107); Estimated GFR-MDRD 79; Glucose 111 mg/dL (83-110); Sodium 135 mmol/L (136-145)
[2018-07-20 08:09] LABS: Potassium 2.9 mmol/L (3.5-5.1)
[2018-07-20] MEDS: Ivabradine 5 MG TAB PO SCH ×2 (08:54→20:06)
[2018-07-20] MEDS: Sacubitril 49 MG/Valsartan 51 MG TABLET PO SCH (08:56)
[2018-07-20] MEDS: Potassium Bicarbonate/Cit Ac 25 MEQ TAB PO SCH ×4 (08:56→16:32)
[2018-07-20] MEDS: Furosemide 40 MG TAB PO SCH (08:56)
[2018-07-20] MEDS: Nitrofurantoin Monohyd/M-Cryst 100 MG CAP PO SCH (08:58)
[2018-07-20] MEDS: Brimonidine Tartrate 0.2% Ophth Soln 5 ml Bottle L EYE SCH ×2 (09:09→20:07)
[2018-07-20] MEDS: Brinzolamide 1% Ophth Soln 10 ml Bottle L EYE SCH ×3 (09:10→20:07)
[2018-07-20] MEDS: Timolol 0.5% Ophth Soln 5 ml Bottle L EYE SCH ×2 (09:10→20:06)
[2018-07-20] MEDS: Fentanyl 100 MCG/2 ML VIAL SLOW IVP PRN (11:12)
[2018-07-20 14:35] VITALS: BMI 22.1
[2018-07-20] MEDS: Atorvastatin Calcium 40 MG TAB PO SCH (20:06)
[2018-07-20] MEDS: Latanoprost 0.005% Ophth Soln 2.5 ml Bottle L EYE SCH (20:07)
[2018-07-21] MEDS: MEROPENEM 1 GM/50 ML 1 GM in Premix Bag 1 BAG IVPB SCH ×3 (01:41→17:46)
[2018-07-21] MEDS: Levothyroxine 150 MCG TAB PO SCH (05:22)
[2018-07-21] MEDS: Sacubitril 49 MG/Valsartan 51 MG TABLET PO SCH (08:24)
[2018-07-21] MEDS: Ivabradine 5 MG TAB PO SCH ×2 (08:24→20:48)
[2018-07-21] MEDS: Nitrofurantoin Monohyd/M-Cryst 100 MG CAP PO SCH (08:24)
[2018-07-21] MEDS: Potassium Bicarbonate/Cit Ac 25 MEQ TAB PO SCH ×5 (08:24→20:48)
[2018-07-21] MEDS: Furosemide 40 MG TAB PO SCH (08:25)
[2018-07-21] MEDS: Timolol 0.5% Ophth Soln 5 ml Bottle L EYE SCH ×2 (08:26→20:50)
[2018-07-21] MEDS: Brinzolamide 1% Ophth Soln 10 ml Bottle L EYE SCH ×3 (08:27→20:48)
[2018-07-21] MEDS: Brimonidine Tartrate 0.2% Ophth Soln 5 ml Bottle L EYE SCH ×2 (08:27→20:50)
[2018-07-21 10:30] LABS: Anion Gap 10 mmol/L (10-20); BUN (Urea Nitrogen) 27 mg/dL (9.8-20.1); Calc. Creatinine Clearance 57 mL/min (70-130); Calcium 8.5 mg/dL (7.8-10.44); Carbon Dioxide 32 mmol/L (23-31); Chloride 96 mmol/L (98-107); Estimated GFR-MDRD 85; Glucose 102 mg/dL (83-110); Sodium 135 mmol/L (136-145)
--- NOTE | 2018-07-21 16:04 | RAD ---
MODIFIED BARIUM SWALLOW 07/21/18 HISTORY: Dysphagia, unspecified. Feeding difficulties. A modified barium swallow is performed in conjunction with a member of the Division of Speech Patholo gy. The patient was imaged in the lateral projection swallowing pudding and thin liquids with barium. FINDINGS: With all swallows penetration and aspiration was noted. Evaluation is limited secondary to marked pat ient somnolence. IMPRESSION: Penetration and aspiration. Please see speech pathologist report for full detail and feeding recommen dations. POS: [facility]
[2018-07-21] MEDS: Atorvastatin Calcium 40 MG TAB PO SCH (20:48)
[2018-07-21] MEDS: Latanoprost 0.005% Ophth Soln 2.5 ml Bottle L EYE SCH (20:49)
[2018-07-22] MEDS: MEROPENEM 1 GM/50 ML 1 GM in Premix Bag 1 BAG IVPB SCH ×3 (03:02→17:55)
[2018-07-22] MEDS: Levothyroxine 150 MCG TAB PO SCH (05:26)
[2018-07-22 07:22] LABS: Anion Gap 12 mmol/L (10-20); BUN (Urea Nitrogen) 32 mg/dL (9.8-20.1); Calc. Creatinine Clearance 58 mL/min (70-130); Calcium 8.6 mg/dL (7.8-10.44); Carbon Dioxide 30 mmol/L (23-31); Chloride 97 mmol/L (98-107); Estimated GFR-MDRD 88; Glucose 105 mg/dL (83-110); Sodium 136 mmol/L (136-145)
[2018-07-22 07:37] LABS: Potassium 2.9 mmol/L (3.5-5.1)
[2018-07-22] MEDS: Furosemide 40 MG TAB PO SCH (08:45)
[2018-07-22] MEDS: Ivabradine 5 MG TAB PO SCH ×2 (08:45→20:42)
[2018-07-22] MEDS: Sacubitril 49 MG/Valsartan 51 MG TABLET PO SCH (08:45)
[2018-07-22] MEDS: Potassium Bicarbonate/Cit Ac 25 MEQ TAB PO SCH ×4 (08:47→20:41)
[2018-07-22] MEDS: Timolol 0.5% Ophth Soln 5 ml Bottle L EYE SCH ×2 (08:48→20:42)
[2018-07-22] MEDS: Brimonidine Tartrate 0.2% Ophth Soln 5 ml Bottle L EYE SCH ×2 (08:51→20:42)
[2018-07-22] MEDS: Brinzolamide 1% Ophth Soln 10 ml Bottle L EYE SCH ×3 (08:52→20:42)
[2018-07-22] MEDS: Fentanyl 100 MCG/2 ML VIAL SLOW IVP PRN (09:34)
[2018-07-22] MEDS: Atorvastatin Calcium 40 MG TAB PO SCH (20:41)
[2018-07-22] MEDS: Latanoprost 0.005% Ophth Soln 2.5 ml Bottle L EYE SCH (20:42)
[2018-07-23] MEDS: MEROPENEM 1 GM/50 ML 1 GM in Premix Bag 1 BAG IVPB SCH ×3 (01:20→17:53)
[2018-07-23] MEDS: Levothyroxine 150 MCG TAB PO SCH (04:19)
[2018-07-23] MEDS: Furosemide 40 MG TAB PO SCH (07:41)
[2018-07-23] MEDS: Sacubitril 49 MG/Valsartan 51 MG TABLET PO SCH (07:41)
[2018-07-23] MEDS: Ivabradine 5 MG TAB PO SCH ×2 (07:41→21:53)
[2018-07-23] MEDS: Potassium Bicarbonate/Cit Ac 25 MEQ TAB PO SCH ×3 (07:42→22:07)
[2018-07-23] MEDS: Timolol 0.5% Ophth Soln 5 ml Bottle L EYE SCH ×2 (07:42→21:52)
[2018-07-23] MEDS: Brinzolamide 1% Ophth Soln 10 ml Bottle L EYE SCH ×3 (07:43→21:58)
[2018-07-23] MEDS: Brimonidine Tartrate 0.2% Ophth Soln 5 ml Bottle L EYE SCH ×2 (07:43→22:07)
[2018-07-23 08:23] LABS: Anion Gap 14 mmol/L (10-20); BUN (Urea Nitrogen) 37 mg/dL (9.8-20.1); Calc. Creatinine Clearance 42 mL/min (70-130); Calcium 8.7 mg/dL (7.8-10.44); Carbon Dioxide 28 mmol/L (23-31); Chloride 100 mmol/L (98-107); Estimated GFR-MDRD 62; Glucose 96 mg/dL (83-110); Potassium 4.8 mmol/L (3.5-5.1); Sodium 137 mmol/L (136-145)
[2018-07-23] MEDS ORDERED: Pentazocine HCl/Naloxone HCl 50/0.5 MG TAB PO SCH (09:15)
--- NOTE | 2018-07-23 15:24 | EKG ---
Test Reason : FALL Blood Pressure : / mmHG Vent. Rate : 079 BPM Atrial Rate : 076 BPM P-R Int : 000 ms QRS Dur : 106 ms QT Int : 388 ms P-R-T Axes : 019 085 -10 degrees QTc Int : 444 ms Atrial-paced rhythm with prolonged AV conduction with Premature atrial complexes Septal infarct , age undetermined Abnormal ECG Confirmed by AURELIO PEREZ ([id number]), senior technical editor MABEL LIANG ([id number] on 07/23/2018 3:23:21 PM Referred By: Confirmed By:AURELIO PEREZ
[2018-07-23] MEDS: Atorvastatin Calcium 40 MG TAB PO SCH (21:53)
[2018-07-23] MEDS: Latanoprost 0.005% Ophth Soln 2.5 ml Bottle L EYE SCH (22:13)
[2018-07-24] MEDS: MEROPENEM 1 GM/50 ML 1 GM in Premix Bag 1 BAG IVPB SCH ×2 (01:43→10:16)
[2018-07-24] MEDS: Levothyroxine 150 MCG TAB PO SCH (05:19)
[2018-07-24 07:13] LABS: Anion Gap 10 mmol/L (10-20); BUN (Urea Nitrogen) 40 mg/dL (9.8-20.1); Calc. Creatinine Clearance 46 mL/min (70-130); Calcium 8.3 mg/dL (7.8-10.44); Carbon Dioxide 33 mmol/L (23-31); Chloride 100 mmol/L (98-107); Estimated GFR-MDRD 67; Glucose 110 mg/dL (83-110); Potassium 3.7 mmol/L (3.5-5.1); Sodium 139 mmol/L (136-145)
[2018-07-24] MEDS ORDERED: Pentazocine HCl/Naloxone HCl 50/0.5 MG TAB PO PRN ×2 (08:23→08:25)
[2018-07-24] MEDS: Potassium Bicarbonate/Cit Ac 25 MEQ TAB PO SCH ×2 (08:24→14:38)
[2018-07-24] MEDS: Ivabradine 5 MG TAB PO SCH (08:25)
[2018-07-24] MEDS: Furosemide 40 MG TAB PO SCH (08:25)
[2018-07-24] MEDS: Sacubitril 49 MG/Valsartan 51 MG TABLET PO SCH (08:25)
[2018-07-24] MEDS: Brimonidine Tartrate 0.2% Ophth Soln 5 ml Bottle L EYE SCH (08:25)
[2018-07-24] MEDS: Brinzolamide 1% Ophth Soln 10 ml Bottle L EYE SCH ×2 (08:26→14:39)
[2018-07-24] MEDS: Timolol 0.5% Ophth Soln 5 ml Bottle L EYE SCH (08:26)
[2018-07-24] MEDS ORDERED: Pentazocine HCl/Naloxone HCl 50/0.5 MG TAB PO SCH (09:00)
[2018-07-24] MEDS: Pentazocine HCl/Naloxone HCl 50/0.5 MG TAB PO SCH ×2 (09:29→13:54)
[2018-07-24 16:20] VITALS: BP 142/82; TEMP 97.7
== END 2018-07-24 16:44 | DRG 535 ==
LOC: ERS 09:14 → T4-A 13:55
PROVIDERS: ADMIT Specialist; ATTEND Specialist
DX: S32.591A Other specified fracture of right pubis, initial encounter for closed fracture (principal); J18.9 Pneumonia, unspecified organism; I50.43 Acute on chronic combined systolic (congestive) and diastolic (congestive) heart failure; J44.1 Chronic obstructive pulmonary disease with (acute) exacerbation; I42.8 Other cardiomyopathies; I11.0 Hypertensive heart disease with heart failure; W18.39XA Other fall on same level, initial encounter; Z95.0 Presence of cardiac pacemaker; R09.02 Hypoxemia; Z88.6 Allergy status to analgesic agent; Z88.2 Allergy status to sulfonamides; Z77.22 Contact with and (suspected) exposure to environmental tobacco smoke (acute) (chronic); F41.1 Generalized anxiety disorder; F32.89 Other specified depressive episodes; E03.9 Hypothyroidism, unspecified; E86.0 Dehydration; R53.81 Other malaise; E87.6 Hypokalemia; D64.89 Other specified anemias; H54.40 Blindness, one eye, unspecified eye; Z85.840 Personal history of malignant neoplasm of eye; Z79.890 Hormone replacement therapy; Z79.02 Long term (current) use of antithrombotics/antiplatelets; Z66 Do not resuscitate; L89.152 Pressure ulcer of sacral region, stage 2
CPT/HCPCS: 36415; 51701; 71045; 71046; 71260; 72170; 74230; 80048; 80053; 80202; 81001; 81003; 81015; 83036; 83880; 84443; 85025; 87040; 87070; 87077; 87186; 87205; 93005; 93306; 94640; 96374; A4353; C9113; J0456; J1940; J1956; J2185; J2270; J2405; J2543; J3010; J3370; J7050; J7620